=== PATIENT | male | born 1985 | race Two or more races ===

== ENCOUNTER 2024-09-25 08:50 | Emergency (ER) | payer OTHER ==
[~2024-09-25] VITALS: Ht 182.9 cm; Wt 90.7 kg
[2024-09-25 08:54] VITALS: BP 122/69; O2SAT 100
[2024-09-25] MEDS ORDERED: CEFTRIAXONE SODIUM 1,000 MG VIAL IM STA (11:04)
[2024-09-25] MEDS ORDERED: KETOROLAC TROMETHAMINE 30 MG VIAL IM STA (11:04)
[2024-09-25] MEDS ORDERED: KETOROLAC TROMETHAMINE 30 MG VIAL ONE (11:19)
[2024-09-25] MEDS ORDERED: CEFTRIAXONE SODIUM 1,000 MG VIAL ONE (11:19)
== END 2024-09-25 11:33 | disposition home or self-care (01) ==
LOC: ER 08:53
DX: J03.90 Acute tonsillitis, unspecified (principal)

== ENCOUNTER 2024-11-13 10:05 | Emergency (ER) | payer OTHER ==
[~2024-11-13] VITALS: Ht 182.9 cm; Wt 90.7 kg
[2024-11-13] MEDS ORDERED: FAMOtidine 10 MG/ML (4ML VIAL) IV ONE (11:00)
[2024-11-13] MEDS ORDERED: ONDANSETRON HCL 2 MG/ML VIAL IV ONE (11:00)
[2024-11-13 11:11] LABS: HEMATOCRIT 46.3 % (39.0-48.0); HEMOGLOBIN 15.2 g/dL (13-16.00); MEAN CELL VOLUME 86.3 fL (80.0-100.00); MEAN CORPUSCULAR HEMOGLOBIN 28.4 pg (27.00-32.0); MEAN CORPUSCULAR HGB CONC 32.9 g/dl (32.0-36.0); PLATELET COUNT 286 K/uL (150-450); RED BLOOD COUNT 5.37 M/uL (4.00-6.00); RED CELL DISTRIBUTION WIDTH 13.2 % (11.5-14.5)
[2024-11-13 11:42] LABS: BILIRUBIN TOTAL 0.76 mg/dL (0.3-1.2); CALCIUM 9.1 mg/dL (8.5-10.1); CREATININE SERUM 0.91 mg/dL (0.70-1.30); GFR 93.75; GLOBULINA 3.8 G/DL (2.4-3.5); POTASSIUM 4.54 mEq/L (3.5-5.1); TOTAL PROTEIN 7.8 gm/dL (6.4-8.2)
[2024-11-13] MEDS ORDERED: KETOROLAC TROMETHAMINE 30 MG VIAL IU ONE (12:15)
[2024-11-13] MEDS ORDERED: PEPCID AC20 MG PO (13:24)
[2024-11-13] MEDS ORDERED: ZOFRAN8 MG PO (13:24)
== END 2024-11-13 13:34 | disposition home or self-care (01) ==
LOC: ER 10:07
PROVIDERS: General Practice
DX: K29.70 Gastritis, unspecified, without bleeding (principal); Z20.822 Contact with and (suspected) exposure to COVID-19